=== PATIENT | female | born 1950 | race Caucasian/White ===

== ENCOUNTER 2023-02-28 14:37 | Emergency (ER) | payer OTHER ==
[~2023-02-28] VITALS: Ht 162.6 cm; Wt 115.7 kg
[2023-02-28 14:40] VITALS: BP 143/73; PULSE 69; RESP 16; TEMP 98.2; O2SAT 90
[2023-02-28 18:45] VITALS: BP 143/73; PULSE 69; RESP 16; TEMP 98.2; O2SAT 90
== END 2023-02-28 18:45 | disposition home or self-care (01) ==
LOC: MED 14:37
DX: M17.12 Unilateral primary osteoarthritis, left knee (principal); M76.892 Other specified enthesopathies of left lower limb, excluding foot; M25.572 Pain in left ankle and joints of left foot; I11.0 Hypertensive heart disease with heart failure; I50.9 Heart failure, unspecified; J45.909 Unspecified asthma, uncomplicated; E78.5 Hyperlipidemia, unspecified
CPT/HCPCS: 73562; 73610; 99284

== ENCOUNTER 2023-07-26 23:45 | Emergency (ER) | payer OTHER ==
[~2023-07-26] VITALS: Ht 162.6 cm; Wt 95.3 kg
[2023-07-26 23:52] VITALS: BP 129/65; PULSE 72; RESP 18; TEMP 98.3; O2SAT 98
[2023-07-27 00:03] VITALS: PULSE 67; RESP 13; O2SAT 96
[2023-07-27] MEDS: ALBUTEROL 0.083% 2.5 MG/3 ML NEBU INH ONE (00:17)
[2023-07-27] MEDS: ALBUTEROL SULFATE/IPRATROPIU 3 ML SOL IH ONE (00:17)
[2023-07-27] MEDS: predniSONE 20 MG TAB PO ONE (00:25)
[2023-07-27] MEDS ORDERED: PRED20TA5 PO (00:26)
[2023-07-27 02:01] VITALS: BP 129/65; PULSE 67; RESP 12; TEMP 97; O2SAT 96
== END 2023-07-27 02:01 | disposition home or self-care (01) ==
LOC: MED 23:45
DX: J45.901 Unspecified asthma with (acute) exacerbation (principal); I10 Essential (primary) hypertension; Z98.890 Other specified postprocedural states; Z90.710 Acquired absence of both cervix and uterus; Z88.0 Allergy status to penicillin; Z88.1 Allergy status to other antibiotic agents
CPT/HCPCS: 94640; 99283; J7512; J7613

== ENCOUNTER 2023-08-04 01:45 | Emergency (ER) | payer OTHER ==
[~2023-08-04] VITALS: Ht 160 cm; Wt 95.3 kg
[~2023-08-04 01:45] MED LIST: GUAI237L61 PO; LEVO750T75 PO; PRED20TA5 PO
[2023-08-04 01:50] VITALS: BP 126/84; PULSE 71; RESP 16; TEMP 98.6; O2SAT 98
[2023-08-04 01:55] VITALS: BP 126/56
[2023-08-04] MEDS: ALBUTEROL SULFATE/IPRATROPIU 3 ML SOL IH ONE (03:44)
[2023-08-04 03:45] VITALS: PULSE 67; RESP 18; O2SAT 97
[2023-08-04 05:08] LABS: FLU A ANTIGEN negative (NEGATIVE); FLU B ANTIGEN NEGATIVE (NEGATIVE)
== END 2023-08-04 07:02 | disposition home or self-care (01) ==
LOC: MED 01:45
DX: J45.901 Unspecified asthma with (acute) exacerbation (principal); Z20.822 Contact with and (suspected) exposure to COVID-19; I10 Essential (primary) hypertension; E11.9 Type 2 diabetes mellitus without complications; Z88.1 Allergy status to other antibiotic agents; Z88.5 Allergy status to narcotic agent; Z79.4 Long term (current) use of insulin; Z79.899 Other long term (current) drug therapy
CPT/HCPCS: 71046; 94640; 99284

== ENCOUNTER 2023-11-14 00:54 | Emergency (ER) | payer OTHER ==
[~2023-11-14] VITALS: Ht 160 cm; Wt 97.5 kg
[2023-11-14 01:05] VITALS: BP 131/105; PULSE 70; RESP 16; TEMP 96.8; O2SAT 98
[2023-11-14] MEDS ORDERED: METH4TAB1 PO (03:16)
[2023-11-14 03:59] VITALS: BP 131/105; PULSE 70; RESP 16; TEMP 96.8; O2SAT 98
== END 2023-11-14 03:59 | disposition home or self-care (01) ==
LOC: MED 00:54
DX: B34.9 Viral infection, unspecified (principal); Z20.822 Contact with and (suspected) exposure to COVID-19; I11.0 Hypertensive heart disease with heart failure; E11.9 Type 2 diabetes mellitus without complications; J45.909 Unspecified asthma, uncomplicated; Z88.1 Allergy status to other antibiotic agents; Z88.5 Allergy status to narcotic agent; Z79.899 Other long term (current) drug therapy; Z79.4 Long term (current) use of insulin
CPT/HCPCS: 99283